=== PATIENT | male | born 1975 | race Caucasian/White ===

== ENCOUNTER 2017-02-13 07:50 | Emergency (ER) | payer MEDICAID ==
[~2017-02-13] VITALS: Ht 185.4 cm; Wt 65.8 kg
[2017-02-13 08:00] VITALS: BP 126/88
== END 2017-02-13 08:58 | disposition home or self-care (01) ==
LOC: ER 07:55
DX: G89.29 Other chronic pain (principal); M54.5 Low back pain; Z76.0 Encounter for issue of repeat prescription

== ENCOUNTER 2017-02-17 08:11 | Emergency (ER) | payer MEDICAID ==
[~2017-02-17] VITALS: Ht 185.4 cm; Wt 65.8 kg
[2017-02-17 08:56] VITALS: BP 126/90
== END 2017-02-17 09:03 | disposition home or self-care (01) ==
LOC: ER 08:16
DX: Z76.1 Encounter for health supervision and care of foundling (principal); Z76.0 Encounter for issue of repeat prescription; Z53.21 Procedure and treatment not carried out due to patient leaving prior to being seen by health care provider